=== PATIENT | male | born 1960 | race African-American/Black ===

== ENCOUNTER 2023-02-27 02:21 | Emergency (ER) | payer OTHER ==
[~2023-02-27] VITALS: Ht 175.3 cm; Wt 65.3 kg
[2023-02-27 02:58] VITALS: BP_SYST 136
[2023-02-27] MEDS ORDERED: CYCLOBENZAPRINE HCL 10 MG TABLET (FLEXERIL) PO ONE (03:15)
[2023-02-27] MEDS ORDERED: ONDANSETRON 4 MG ODT TAB PO ONE (03:15)
[2023-02-27] MEDS ORDERED: MORPHINE 4 MG INJ. 4 MG/ML VIAL IM ONE (03:15)
[2023-02-27] MEDS ORDERED: ACETAMINOPHEN 500 MG TABLET PO ONE (03:15)
[2023-02-27] MEDS ORDERED: LIDOCAINE PATCH 5% 1 EA TP ONE (03:15)
[2023-02-27] MEDS ORDERED: CYCL10TA24 PO (03:52)
[2023-02-27] MEDS ORDERED: PERC10 PO (03:52)
[2023-02-27] MEDS ORDERED: LIDO1ADH22 TP (03:52)
[2023-02-27] MEDS ORDERED: ACET-2634 PO (03:52)
[2023-02-27] MEDS ORDERED: LACTULOSE 20 GM/30 ML UDC PO ONE (05:30)
[2023-02-27] MEDS ORDERED: PSYLLIUM HUSK 1 PKT PACKET PO SCH (05:30)
[2023-02-27] MEDS ORDERED: DOCUSATE SODIUM 100 MG CAPSULE PO ONE (05:30)
[2023-02-27] MEDS ORDERED: POLYETHYLENE GLYCOL 3350, 17 GM/ POWD.PACK PO SCH (05:30)
[2023-02-27] MEDS ORDERED: HYDROcodone/ACETAMIN 5-325 MG TAB (NORCO/ VICODIN) PO ONE (05:45)
[2023-02-27 05:54] VITALS: BP_SYST 125
== END 2023-02-27 05:54 | disposition home or self-care (01) ==
LOC: SED 02:21
DX: S39.012A Strain of muscle, fascia and tendon of lower back, initial encounter (principal); S76.011A Strain of muscle, fascia and tendon of right hip, initial encounter; M48.02 Spinal stenosis, cervical region; M51.36 Other intervertebral disc degeneration, lumbar region; E78.5 Hyperlipidemia, unspecified; Z79.899 Other long term (current) drug therapy; X50.0XXA Overexertion from strenuous movement or load, initial encounter; Y93.89 Activity, other specified; Y92.89 Other specified places as the place of occurrence of the external cause; Y99.8 Other external cause status
CPT/HCPCS: 72131; 72192-TC; 76376; 96372; 99285; J2270; Q0162